=== PATIENT | female | born 1995 | race Caucasian/White ===

== ENCOUNTER 2017-08-07 02:47 | Emergency (ER) | payer MEDICAID, OTHER ==
[2017-08-07 03:01] VITALS: BMI 25.4
[2017-08-07] MEDS ORDERED: Lactated Ringer's 1,000 ML IV SCH ×2 (03:45→05:15)
[2017-08-07 04:16] LABS: RBC URINE 6 /hpf (0-3); URINE BACTERIA MANY (<OCC); URINE BILIRUBIN NEGATIVE (NEGATIVE); URINE BLOOD NEGATIVE (NEGATIVE); URINE COLOR AMBER (YELLOW); URINE GLUCOSE (UA) 150 mg/dL (Normal); URINE KETONE NEGATIVE (NEGATIVE); URINE LEUKOCYTE ESTERASE MOD Leu/uL (Negative); URINE PROTEIN 30 mg/dL (NEGATIVE); URINE UROBILINOGEN 0.2-1.0 mg/dL (0.2-1.0); WBC URINE 177 /hpf (0-5)
[2017-08-07 04:31] VITALS: TEMP 98.5
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
[2017-08-07 12:08] VITALS: BP 124/97; PULSE 75
== END 2017-08-07 06:45 | disposition home or self-care (01) ==
LOC: H.EROB2 02:47
DX: O26.93 Pregnancy related conditions, unspecified, third trimester (principal); M54.5 Low back pain; R10.2 Pelvic and perineal pain; O47.1 False labor at or after 37 completed weeks of gestation; Z3A.39 39 weeks gestation of pregnancy
CPT/HCPCS: 80324; 80345; 80346; 80349; 80353; 80358; 80361; 81003; 83992; 87086; 87181; 96374; 99283; J0696; J7120

== ENCOUNTER 2017-12-09 21:29 | Emergency (ER) | payer OTHER ==
[2017-12-09 21:29] VITALS: BMI 25.4
[2017-12-09 21:33] VITALS: PULSE 106; RESP 16
[2017-12-09 21:36] VITALS: BP 138/76; TEMP 98; O2SAT 98
[2017-12-09] MEDS ORDERED: Sodium Chloride 0.9% 1,000 ML IV STA (23:00)
--- NOTE | 2017-12-09 23:19 | ED PDOC ---
HPI: Psych/Substance Abuse Time Seen by Provider: 12/09/17 22:25 Chief Complaint (Nursing): Substance Abuse History Per: Patient Additional Complaint(s): Pt. states today she developed 6 episodes of vomiting and pelvic pain. Admits to using heroin prior to getting nauseous. States she has an Rx for suboxone but has yet to take it. Denies diarrhea, hematemesis, fever, dysuria, hematuria , frequency, urgency. Past Medical History Reviewed: Historical Data, Nursing Documentation, Vital Signs Vital Signs: Last Vital Signs Temp 98.0 F 12/09/17 21:33 Pulse 106 H 12/09/17 21:33 Resp 16 12/09/17 21:33 BP 138/76 12/09/17 21:33 Pulse Ox 98 12/09/17 21:33 - Medical History PMH: Gastritis Denies: Diabetes, Hepatitis, HIV, HTN, Seizures, Sexually Transmitted Disease Other PMH: hepatitis C - Surgical History Surgical History: - Family History Family History: States: No Known Family Hx - Immunization History Hx Tetanus Toxoid Vaccination: No Hx Influenza Vaccination: No Hx Pneumococcal Vaccination: No - Home Medications Home Medications: Ambulatory Orders Medication Instructions Recorded Multivit/Folic Acid/I 1 tab PO DAILY 08/02/17 [ Plus] - Allergies Allergies/Adverse Reactions: Allergies Allergy/AdvReac Type Severity Reaction Status Date / Time No Known Allergies Allergy Verified 12/09/17 21:33 Review of Systems ROS Statement: Except As Marked, All Systems Reviewed And Found Negative Gastrointestinal: Positive for: Nausea, Vomiting, Abdominal Pain Physical Exam - Reviewed Nursing Documentation Reviewed: Yes Vital Signs Reviewed: Yes - Physical Exam Appears: Positive for: Well, Non-toxic, No Acute Distress Head Exam: Positive for: ATRAUMATIC, NORMAL INSPECTION, NORMOCEPHALIC Skin: Positive for: Normal Color, Warm. Negative for: Rash Eye Exam: Positive for: EOMI, Normal appearance, PERRL ENT: Positive for: Normal ENT Inspection Neck: Positive for: Normal, Painless ROM Cardiovascular/Chest: Positive for: Regular Rate, Rhythm Respiratory: Positive for: CNT, Normal Breath Sounds Gastrointestinal/Abdominal: Positive for: Normal Exam, Bowel Sounds, Soft. Negative for: Tenderness Back: Positive for: Normal Inspection Extremity: Positive for: Normal ROM Neurologic/Psych: Positive for: Alert, Oriented, Other (somnolent but is arousable to verbal stimuli and follows directions). Negative for: Aphasia, Facial Droop - Laboratory Results Result Diagrams: 12/09/17 23:22 12/09/17 23:22 - ECG O2 Sat by Pulse Oximetry: 98 - Progress ED Course And Treament: Labs ordered. IV NS bolus x 1, zofran 4mg IV ordered. 2328 WBC: 14.9 VBG, CT abd/pelvis w/ IV contrast ordered. 022 CT abd/pelvis w/ IV contrast: Cholelithiasis On re-evaluation, pt. AOx3. Reports no abdominal pain and states nausea has resolved. Requesting food. Gait steady. Abd soft and non-tender to deep palpation. Negative Mtz's sign. Case d/w Dr. Crabtree who agrees with plan and disposition. Pt. with hx of Hep C which accounts for elevated AST. Elevated WBC is likely due to vomiting. Pt. states she feels much better and is requesting to be dc'd. Informed of results and instructed to return to ED immediately if symptoms persist or worsen. Disposition - Clinical Impression Clinical Impression: Heroin use, Cholelithiasis - Patient ED Disposition Is Patient to be Admitted: No - Disposition Referrals: [facility] [Outside] Disposition: Routine/Home Disposition Time: 02:30 Condition: IMPROVED Instructions: Gallstones (DC), Drug Abuse Treatment Forms: [employer] ([place]) Print Language: YI
[2017-12-09 23:25] LABS: BASO # 0.1 K/uL (0.0-0.2); BASO % 0.3 % (0.0-2.0); EOS # 0.2 K/uL (0.0-0.7); EOS % 1.6 % (0.0-4.0); HEMOGLOBIN 13.7 g/dL (12.0-16.0); LYMPH # 4.1 K/uL (1.0-4.3); LYMPH % 27.6 % (20.0-40.0); MEAN CELL VOLUME 79.7 fl (81.0-99.0); MEAN CORPUSCULAR HEMOGLOBIN 25.4 pg (27.0-31.0); MEAN CORPUSCULAR HGB CONC 31.9 g/dL (33.0-37.0); MEAN PLATELET VOLUME 9.1 fl (7.2-11.7); MONO # 0.9 K/uL (0.0-0.8); MONO % 6.2 % (0.0-10.0); NEUT # 9.6 K/uL (1.8-7.0); NEUT % 64.3 % (50.0-75.0); NRBC % 0.1 % (0.0-0.0); RBC 5.4 Mil/uL (3.80-5.20); RED CELL DISTRIBUTION WIDTH 17.6 % (11.5-14.5); WHITE BLOOD COUNT 14.9 K/uL (4.8-10.8)
[2017-12-09 23:42] LABS: ALBUMIN 4.7 g/dL (3.5-5.0); ALT/SGPT 47 U/L (9-52); AST/SGOT 50 U/L (14-36); BLOOD UREA NITROGEN 17 mg/dl (7-17); CALCIUM 9.9 mg/dL (8.4-10.2); GFR AFRICAN-AMERICAN > 60; GFR NON-AFRICAN AMERICAN > 60; LIPASE 121 U/L (23-300)
[2017-12-10 00:27] LABS: VENOUS BLOOD GAS BASE EXCESS 3.2 mmol/L (0.0-2.0); VENOUS BLOOD GAS PCO2 51 mmHg (40-60); VENOUS BLOOD GAS PO2 38 mm/Hg (30-55); VENOUS BLOOD PH 7.37 (7.32-7.43)
[2017-12-10 00:33] LABS: VENOUS BLOOD GAS BASE EXCESS 3.1 mmol/L (0.0-2.0); VENOUS BLOOD GAS PCO2 51 mmHg (40-60); VENOUS BLOOD GAS PO2 39 mm/Hg (30-55); VENOUS BLOOD PH 7.37 (7.32-7.43)
[2017-12-10] MEDS ORDERED: Sodium Chloride 0.9% 100 ML ONE (00:34)
[2017-12-10] MEDS ORDERED: Iohexol 300 100 ML IJ ONE (00:34)
--- NOTE | 2017-12-10 01:31 | CT ---
EXAM: CT Abdomen and Pelvis With Intravenous Contrast CLINICAL HISTORY: 22 years old, female; Pain and signs and symptoms; Vomiting; Abdominal pain and other: Pelvic pain; Localized; Lower; Prior surgery; Surgery date: 6+ months; Surgery type: ; Additional info: Abdominal pain; Leukocytosis. Sent phy. Doc. TECHNIQUE: Axial computed tomography images of the abdomen and pelvis with intravenous contrast. All CT scans at this facility use one or more dose reduction techniques, viz.: automated exposure control; ma/kV adjustment per patient size (including targeted exams where dose is matched to indication; i.e. head); or iterative reconstruction technique. Coronal and sagittal reformatted images were created and reviewed. CONTRAST: 90 mL of [id number] administered intravenously. COMPARISON: No relevant prior studies available. FINDINGS: Limitations: Motion artifact - mild. Lower thorax: Mild atelectasis. ABDOMEN: Liver: Unremarkable. No mass. Gallbladder and bile ducts: Gallstones. No significant ductal dilation. Pancreas: No ductal dilation. No mass. Spleen: Mild splenomegaly, AP dimension. Adrenals: No mass. Kidneys and ureters: No mass. No hydronephrosis. Stomach and bowel: No definite mural thickening. No obstruction. Appendix: Normal caliber. No definite inflammation. PELVIS: Bladder: Unremarkable. Reproductive: Air within vaginal vault. ABDOMEN and PELVIS: Intraperitoneal space: No significant fluid collection. No free air. Bones/joints: Mild degenerative disease within lower lumbar spine. Soft tissues: Tiny umbilical hernia containing fat. Pfannenstiel scar. Vasculature: Unremarkable. No aneurysm. Lymph nodes: No pathologically enlarged lymph nodes. IMPRESSION: 1. Cholelithiasis. 2. Incidental/non-acute findings are described above.
== END 2017-12-10 03:08 | disposition home or self-care (01) ==
LOC: H.ER 21:29
DX: K80.20 Calculus of gallbladder without cholecystitis without obstruction (principal); F11.90 Opioid use, unspecified, uncomplicated; B19.20 Unspecified viral hepatitis C without hepatic coma
CPT/HCPCS: 74177; 80053; 80320; 81025; 82803; 83690; 85025; 96374; 99283; J2405; J7040; Q9967

== ENCOUNTER 2017-12-14 23:24 | Emergency (ER) | payer OTHER ==
[2017-12-14 23:25] VITALS: BMI 25.4
[2017-12-14 23:38] VITALS: BP 123/85; PULSE 84; RESP 18; O2SAT 100
[2017-12-14 23:53] VITALS: TEMP 97.9
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
== END 2017-12-15 00:30 ==
LOC: H.ER 23:24
DX: F43.20 Adjustment disorder, unspecified